=== PATIENT | female | born 1985 | race Caucasian/White ===

== ENCOUNTER 2024-04-22 10:15 | Emergency (ER) | payer OTHER, SELFPAY ==
[2024-04-22 10:18] VITALS: BP 120/76
--- NOTE | 2024-04-22 11:18 | ED.GENMED ---
History of Present Illness
General
Chief Complaint: Head Injury
Source: patient
Exam Limitations: none
Time Seen by Provider: 04/22/24 11:08
History of Present Illness
History of Present Illness:
39-year-old otherwise healthy female presents with worsening headache nausea cognitive fog blurry vision fatigue after striking her head 4 days ago. She bent over and stood up and hitting the top back of her head against the mantle. No loss of
conscious time but she was certainly days. She notes some neck stiffness but denies any significant pain or paresthesias. She is not anticoagulated. No other complaints this time
Phy Exam
Physical Exam
Physical Exam:
General: Well-appearing female no acute respiratory distress
HEENT: Normocephalic pupils equal round reactive to light extract motion intact no nystagmus
Heart: Regular rate and rhythm no murmurs
Lungs: Clear no wheeze
Neurologic: Alert and oriented normal gait finger-nose intact does seem somewhat slow to respond to questions
Musculoskeletal exam: No midline tenderness over the cervical spine
Course
Orders/Labs/Results
Orders:
Orders
04/22/24 11:16
Acetaminophen [Tylenol] 650 mg PO NOW STA
Ondansetron Orally Disint [Zofran Odt (Orally Disintegrating)] 4 mg PO NOW STA
04/22/24 11:18
CT Head W/o Iv Contrast Urgent
Comment:
Reason For Exam: head injury
Vital Signs
Initial and Last Documented VS:
Initial Vital Signs
Temp Pulse Resp BP Pulse Ox
98.3 F 92 16 120/76 100
04/22/24 10:18 04/22/24 10:18 04/22/24 10:18 04/22/24 10:18 04/22/24 10:18
Last Documented Vital Signs
Temp Pulse Resp BP Pulse Ox
98.3 F 92 16 120/76 100
04/22/24 10:18 04/22/24 10:18 04/22/24 10:18 04/22/24 10:18 04/22/24 10:18
MDM/Problems Addressed
Differential Diagnosis Includes:
Head injury. Consider contusion versus concussion versus intracranial hemorrhage. Patient has worsening symptoms since her headache. She is concerned about bleeding. CT of the head pending. Will order Tylenol and Zofran for symptom
*Critical Care Note
Total Time (30-74mins, 75-104mins- exclusive of procedures): Not Applicable
Update Note
Update Note:
CT head negative. Suspect underlying concussive symptoms. Recommended rest Tylenol ibuprofen. Stable for discharge
ED Attending Note
-
Portions of this chart may have been created with voice recognition software.� Occasional wrong word or��sound alike� substitutions may have occurred due to the inherent limitations of voice recognition software.
Discharge Plan
Departure
Patient Disposition: Home (Routine Discharge)
Date of Disposition: 04/22/24
Time of Disposition: 12:13
Patient with high blood pressure during this ER visit?: No
Discharge Problem:
Concussion
Instructions: Concussion, Adult (DC)
Activity Restrictions/Additional Instructions:
Rest. Use ibuprofen or Tylenol for pain. Avoid excessive physical or cognitive activity
Follow-up with family doctor
Interventions
Interventions:
*Risk Screen - Suicide Last Done: 04/22/24 10:18
*General Assessment Last Done: 04/22/24 10:18
ED- Fall Risk Assessment Last Done: 04/22/24 11:19
*ED COVID-19 Vaccine History Last Done: 04/22/24 10:18
ED- Neurological Assessment Last Done: 04/22/24 11:19
ED-Skin Assessment Last Done: 04/22/24 11:19
Discharge Date and Time
Print Language: FRENCH
[2024-04-22] MEDS: ZOFRAN ODT (ORALLY DISINTEGRATING) 4 MG PO (11:22)
[2024-04-22] MEDS: TYLENOL 650 MG PO (11:22)
== END 2024-04-22 12:31 | disposition home or self-care (01) ==
LOC: EMR 10:15
PROVIDERS: EMERGENCY PHYSICIAN Emergency Medicine
DX: S06.0X0A Concussion without loss of consciousness, initial encounter (principal); W22.09XA Striking against other stationary object, initial encounter
CPT/HCPCS: 99284; 70450